=== PATIENT | female | born 1995 | race Asian ===

== ENCOUNTER 2018-05-24 09:06 | Emergency (ER) | payer BC ==
[~2018-05-24] VITALS: Ht 157.5 cm; Wt 54.4 kg
[2018-05-24 09:10] VITALS: BP_SYST 102
--- NOTE | 2018-05-24 09:13 | NUR ---
ER at bedside examining patient.
--- NOTE | 2018-05-24 09:13 | NUR ---
Pt placed in bed 8
[2018-05-24] MEDS ORDERED: DIPH-TET-PERTUS Vaccine 0.5 ML VIAL (ADACEL) I.M. ONE (09:15)
[2018-05-24] MEDS ORDERED: LIDOCAINE 1% 10 MG/ML, 20 ML MDV IJ ONE (09:15)
[2018-05-24] MEDS ORDERED: BACITRACIN 1 GM OINT TP ONE (09:15)
--- NOTE | 2018-05-24 09:15 | NUR ---
Patient arrived via POV, AAOx4, and ambulatory with steady gait. Patient arrived with c/c 2cm laceration to left thumb. Patient was cutting a bagel with a steak knife and cut her hand too. Patient calm and consolable. Resting comfortably with significant other at bedside.
--- NOTE | 2018-05-24 09:48 | NUR ---
Patient given written and verbal discharge instructions and verbalizes understanding. ER MD discussed with patient the results and treatment provided. Patient in stable condition. ID arm band removed. Rx of Tylenol given. Patient educated on pain management and to follow up with PMD. Pain Scale 0/10. Opportunity for questions provided and answered. Medication side effect fact sheet provided.
[2018-05-24 10:00] VITALS: BP_SYST 102
== END 2018-05-24 09:48 | disposition home or self-care (01) ==
LOC: SED 09:06
DX: S61.211A Laceration without foreign body of left index finger without damage to nail, initial encounter (principal); J45.909 Unspecified asthma, uncomplicated; W26.0XXA Contact with knife, initial encounter; Y93.89 Activity, other specified; Y92.89 Other specified places as the place of occurrence of the external cause; Y99.8 Other external cause status
CPT/HCPCS: 12001; 90471; 90715; 99283; J2001